=== PATIENT | male | born 1965 | race Caucasian/White ===

== ENCOUNTER 2020-09-07 17:42 | Outpatient (REF) | payer SELFPAY ==
[2020-09-07 18:01] LABS: COVID-19 Test Negative (Negative)
== END 2020-09-07 17:43 | disposition home or self-care (01) ==
LOC: HO.LAB 17:42
PROVIDERS: Visit Provider Internal Medicine
DX: Z20.828 Contact with and (suspected) exposure to other viral communicable diseases (principal)
CPT/HCPCS: 87635

== ENCOUNTER 2021-11-26 09:48 | Emergency (ER) | payer OTHER, SELFPAY ==
--- NOTE | ~2021-11-26 | CT_ITS ---
EXAMINATION: CT LUMBAR SPINE WITHOUT CONTRAST CLINICAL INFORMATION: Low back pain with numbness COMPARISON: None TECHNIQUE: 2 mm thin axial and reformatted 2 mm thin sagittal and coronal images of lumbar spine were obtained without contrast. This CT examination was performed using dose optimization techniques as appropriate, variously including the following: *Automated exposure control *Adjustment of mA and/or kV according to patient size (this includes techniques or standardized protocols for targeted exams where dose is matched to indication/reason for exam; i.e. extremities or head) *Use of iterative reconstruction technique DLP; 381 mGy-cm FINDINGS: On sagittal reconstructed images there is normal lumbar lordosis. The vertebral heights, alignment and disc heights are normal. There is no visible acute fracture, dislocation or subluxation. The L1-L2 and L2-L3 disc level appears unremarkable. At L3-L4 disc level there is mild diffuse bulge without disc herniation or spinal stenosis. The neural foramina are patent bilaterally. At L4-L5 disc level there is no significant disc bulge, herniation or spinal stenosis. There is mild flattening of the ventral thecal sac. The neural foramina are patent bilaterally. At L5-S1 disc level there is no significant disc bulge, herniation or spinal canal stenosis. The neural foramina are bilaterally patent. Bone windows reveal no lytic or sclerotic process seen. There is minimal ventral spondylosis L2-L3 and L3-L4 disc levels. There are several anechoic cysts in both kidneys. Largest cyst in upper/midpole left kidney measuring 4.1 x 4.4 cm and6 Hounsfield units. No radiopaque renal calculi seen. There is no hydronephrosis. The paravertebral soft tissues are normal. Visualized bilateral SI joints are symmetrical and normal. There is no lytic or sclerotic process seen. CT/CT lumbar spine wo con IMPRESSION: Minimal disc bulges L3-L4 and L4-L5 disc levels without spinal canal stenosis. The neural foramina are patent. There is minimal spondylosis L2-through L3-L4 disc levels..
[2021-11-26 10:30] VITALS: BP 102/68; PULSE 71; RESP 16; TEMP 36.1; O2SAT 98; BMI 23.7
== END 2021-11-26 19:09 | disposition left against medical advice (07) ==
PROVIDERS: Emergency Provider Emergency Medicine
DX: R20.0 Anesthesia of skin (principal); M54.50 Low back pain, unspecified
CPT/HCPCS: 72131; 99282; 99284

== ENCOUNTER 2025-05-20 03:31 | Emergency (ER) | payer OTHER, SELFPAY ==
--- NOTE | 2025-05-20 | ECG_ITS ---
Test Reason : SOB Blood Pressure : */* mmHG Vent. Rate : 73 BPM Atrial Rate : 73 BPM P-R Int : 326 ms QRS Dur : 88 ms QT Int : 386 ms P-R-T Axes : 77 61 44 degrees QTcB Int : 425 ms Sinus rhythm with 1st degree A-V block Otherwise normal ECG No previous ECGs available Referred By: Generic ED Physician Electronically Signed By: ELEN ORTIZ MD
--- NOTE | ~2025-05-20 | XR_ITS ---
CLINICAL HISTORY: sob Chest X-ray, 2 Views COMPARISON: None provided FINDINGS: No consolidation. No pleural effusion. No pneumothorax. No cardiomegaly. No acute fracture. IMPRESSION: No acute findings. This document has been electronically signed by: Shamar Lo MD on 05/20/2025 05:24:58
[2025-05-20 03:33] VITALS: BP 93/57; PULSE 67; RESP 20; TEMP 36.3; O2SAT 93; BMI 22.2
--- OUTSIDE RECORDS SUMMARY | 2025-05-20 03:53 | XMS_ITS | Clinical Summary ---
Author Organization [facility] Address [address] [place] [address] Care Team Providers Care Architecture Instructor Name Role Phone Unavailable Primary Care Provider Unavailabl e Source Comments PLEASE NOTE, if this patient is a minor, it may be UNLAWFUL to discuss sensitive information that is contained in these records (such as FAMILY PLANNING, MENTAL HEALTH or SUBSTANCE ABUSE) with the minor patient's parent or other person without the patient's specific authorization.[facility] Active Problems Problem Noted Date Diagnosed Date Groin pain, left 06/18/2021 Immunizations Immunization Administration Dates Next Due Flu, Preservative Free 08/15/2020,09/06/2019 HEP B, PED/ADOL 10/05/2018,09/29/2017,08/20/2017 MMR (MMR II/Priorix) 10/05/2018,08/20/2017 PFIZER COVID VACCINE, PURPLE CAP, 12+ 11/28/2020 ,11/05/2020 Social History Tobacco Use Types Packs/Day Years Used Date Smoking Tobacco: Every Day Cigarettes Smokeless Tobacco: Never Comments:always thinking abo ut Alcohol Use Standard Drinks/Week Comments Not Currently 0 (1 standard drink = 0.6 oz pur e alcohol) Social Connections Answer Date Recorded Connectedness 0 06/18/2021 Financial Resource Strain Answer Date R ecorded Financial Resource Strain 0 2020 Stress Answer Date Recorded Stress 0 06/18/2021 Physical Activity Answer Date Recorded Physical Activity 0 06/18/2021 Food Insecurity Answer Date Recorded Food 0 06/18/2021 Transportation Needs Answer Date Record ed Transportation 0 06/18/2021 Housing Stability Answer Date Recorded Housing 0 06/18/2021 Safety and Environment Answer Date Danilo rded Safety 0 06/18/2021 Utilities Answer Date Recorded Utilities 0 06/18/2021 Employment Answer Date Recorded Employment 0 06/18/2021 Sex and Gender Information Value Date Recorded Sex Assigned at Male 06/18/2021 7:58 AM PDT Legal Sex Male 5:47 AM PST Gender Identity Male 06/18/2021 7:58 AM PDT Sexual Orientation Straight 06/18/2021 7: 58 AM PDT Last Filed Vital Signs Vital Sign Reading Time Taken Comments Blood Pressure 110/76 06/18/2021 11:00 AM EDT Pulse 78 06/18/2021 11:00 AM EDT Temperature 36.7 C (98.1 F) 06/18/2021 11:00 AM EDT Respiratory Rate 16 06/18/2021 11:00 AM EDT Oxygen Saturation - - Inhaled Oxygen Concentration - - Weight 71.9 kg (158 lb 9.6 oz) 06/18/2021 11:00 AM EDT Height 183 cm (6' 0.05 ) 06/18/2021 11:00 AM EDT Body Mass Index 21.48 06/18/2021 11:00 AM EDT Plan of Treatment Health Maintenance Due Date Last Done Comments Anxiety Screening 1965 Diabetes Screening 1963 Hepatitis C Screening 1963 Lipid Screening 1963 Tobacco Cessation Counseling (#1) 1963 Tobacco Screening 1963 HIV Screening 1978 Imm-DTaP/Tdap/Td (1 - Tdap) 1982 CT Colonography 2008 Colonoscopy 2008 Colorectal Cancer Screening 2008 FIT/gFOBT 2008 Fecal DNA 2008 Flexible Sigmoidoscopy 2008 Imm-Zoster, Recombinant (1 of 2) 2013 Annual Wellness (Adult): Ind icated (All Coverage) 06/18/2022 06/18/2021 Hypertension Screening (#1) 06/18/2022 [id number]-[id number]-25 ( season) 2024 021, 11/05/2020 Imm-Influenza (#1) 2024 08/15/2020, 09/06/2019 Alcohol and Drug Screen 11/17/2024 06/18/2021 Depression Annual Screen 11/17/2024 Insurance [facility] SAFETY NET DENTAL HEALTH SAFETY NET DENTAL HEALTH INSURANCE [facility]
[2025-05-20 03:55] LABS: Hematocrit 47.4 % (42.0-52.0); Hemoglobin 16.5 g/dl (14.0-18.0); Imm Gran Abs Auto 0.05 X10*3/uL (0.00-0.03); Imm Gran Pct Auto 0.5 % (0.0-0.4); Lymphocytes Absolute Auto 2.3 X10*3/uL (1.2-4.9); MANUAL DIFF FLAG NO; Mean Corpuscular HGB Conc 34.8 g/dl (31.0-36.0); Mean Corpuscular Hemoglobin 31.1 pg (27.0-33.0); Mean Corpuscular Volume 89.4 fL (80.0-98.0); NRBC Abs Auto 0.000 X10*3/uL (0.0-0.012); NRBC Pct Auto 0.0 /100WBC (0.0-0.2); Platelet Count 255 X10*3/uL (160-400); Red Blood Count 5.30 X10*6/uL (4.60-5.80); White Blood Count 9.7 X10*3/uL (4.8-10.8)
[2025-05-20 04:14] LABS: Alanine Aminotransferase 25 U/L (0-40); Albumin Level 4.4 g/dL (3.5-5.0); Alkaline Phosphatase 56 U/L (39-117); Anion Gap 12 (12-20); Aspartate Amino Transferase 35 U/L (5-37); Blood Urea Nitrogen 18 mg/dL (9-16); Calcium 8.7 mg/dL (8.4-10.2); Carbon Dioxide 22 mmol/L (22-29); Chloride 110 mmol/L (96-108); Creatinine Clr Calc Pharmacy 100.7; Estimated Glomerular Filt Rate > 60; Potassium 3.9 mmol/L (3.3-5.1); Sodium 140 mmol/L (135-145); Total Protein 7.1 g/dL (6.5-8.0)
[2025-05-20 04:16] LABS: Troponin-I High Sensitivity < 2.7 ng/L (<3.5-35.0)
[2025-05-20 06:14] VITALS: PULSE 55; RESP 15
[2025-05-20 06:20] VITALS: BP 93/60; O2SAT 93
[2025-05-20 06:21] VITALS: BP 96/52
--- NOTE | 2025-05-20 07:24 | MHC.EDTECH ---
This pct attempted to obtain a sars swab on this patient but this patient refused. RN Aware
--- NOTE | 2025-05-20 08:07 | ED.SOB ---
HPI - SOB/Dyspnea General Chief Complaint: Dyspnea Stated Complaint: SOB Time Seen by Provider: 05/20/25 08:07 Source: patient Mode of arrival: ambulatory Limitations: no limitations History of Present Illness ED Provider: ALVARO CLOUD PA-C HPI Narrative: 59 year old male, current tobacco smoker 1 ppd, who presents to the ED today for concerns of feeling bloating. He reports waking up around 0100 to urinate. Upon ambulating to the bathroom, he noted a sensation of feeling bloated. States this feeling made him feel short of breath briefly. Denies any associated abdominal pain or chest pain. At present, he reports feeling gassy . No other concerns. Last BM yesterday, passing flatus. No urinary concerns. No LE swelling. Reports approximately 3 similar episodes in the past which resolved on their own. He did not seek medical attention at that time. He admits to taking 2 shots of ever clear last night and eating spaghetti with red sauce for dinner, prior to going to bed. He is concerned he may have gastritis. Denies any history of this or acid reflux. He admits to intermittent dry cough since COVID (x5 yrs). No change in cough. No sputum production. Denies hx of copd/asthma. No recent travel or long car rides. Admits to consuming etoh socially, approx 2x/year. Denies binge drinking. Smokes marijuana daily. Denies fever, chills, sore throat, chest pain, shortness of breath, palpitations, hemoptysis, nausea/vomiting, diarrhea, constipation, urinary symptoms. Related Data Previous Rx's ?Medication ?Instructions ?Recorded pantoprazole 20 mg tablet,delayed 20 mg PO DAILY #30 tabs 05/20/25 release Allergies Allergy/AdvReac Type Severity Reaction Status Date / Time No Known Allergies (No Known Allergy Unverified 05/20/25 03:38 Allergies*) Review of Systems Review of Systems: Yes all other systems are reviewed and are negative PMFSH Past Medical History Attestation statement: The following information was validated with the patient. Source: old records reviewed and nursing notes reviewed Physical Exam Vital Signs: Vital Signs: Last Vital Signs Temp 97.3 F 05/20/25 09:45 Pulse 58 05/20/25 09:45 Resp 19 05/20/25 09:45 BP 106/69 05/20/25 09:45 Pulse Ox 94 05/20/25 09:45 O2 Del Method Room Air 05/20/25 09:45 BMI result Body Mass Index 22.2 vital signs stable, afebrile General: Well appearing, in no acute distress. Skin: Warm, dry, intact. No rashes or lesions. Head: Normocephalic, atraumatic. EENT: Hearing is intact b/l. Conjunctiva clear. PERRLA. EOM intact. Moist mucous membranes.? Neck: Supple without LAD Cardiac: Chest wall symmetric. RRR Lungs: Normal respiratory effort without accessory muscle use. CTA bilaterally. No rales, rhonchi, or wheezes.? Abdomen: Soft, non-tender, non-distended. No rebound tenderness or guarding. Positive BS x4. Back: No midline spinous or paraspinal tenderness. No step off deformity. Ext: Upper and lower extremities atraumatic, without tenderness, deformity, swelling or erythema. Neuro: AOx3. Normal speech. Strength 5/5 intact throughout. No saddle anesthesia. Sensation intact to light touch. NV intact distally. Ambulating with steady gait Course Course Course Narrative: CBC without leukocytosis or left shift. No anemia. H&H stable. Chemistry without acute electrolyte abnormality requiring intervention. Renal function WNL. Liver function WNL. Troponin flat x2. BNP undetectable, unlikely CHF. Lipase WNL. Chest x-ray without infiltrate or consolidation. No pleural effusion. No cardiomegaly. EKG showing sinus rhythm, rate of 73 beats per minute, first-degree AV block, no acute ischemic changes or ST elevations. > patient treated with GI cocktail with improvement in symptoms. Likely GI in nature. GERD vs gastritis. Will start patient on Protonix. no indication for further imaging at this time. Patient has remained stable throughout ED visit today. Discussed worrisome signs and symptoms and when to return to the ED. All questions answered at this time. Patient is agreeable with disposition and stable for discharge. Medications Administered Discontinued Medications Generic Name Dose Route Start Last Admin Trade Name Freq PRN Reason Stop Dose Admin Al Hydroxide/Mg Hydroxide 30 ml 05/20/25 08:36 05/20/25 09:09 Magnesium Hydrox/Alum Hydrox 30 Ml Oral.Susp PO 05/20/25 08:37 30 ml ONCE ONE Administration Belladonna Alkaloids/Phenobarbital 10 ml 05/20/25 08:36 05/20/25 09:09 Phenobarb/Hyoscy/Atropine/Scop 10 Ml Elixir PO 05/20/25 08:37 10 ml ONCE ONE Administration Ondansetron HCl 4 mg 05/20/25 08:36 05/20/25 09:12 Ondansetron Odt 4 Mg Tab.Pauldis CIELOINGU 05/20/25 08:37 Not Given ONCE ONE Medical Decision Making Medical Decision Making [facility] Narrative: 59 year old male, current tobacco smoker 1 ppd, who presents to the ED today for concerns of feeling bloating. vitals show soft BP, similar to prior visits, vitals are otherwise wnl. he is well appearing, lying comfortably on the exam bed. No respiratory distress, no tripoding. No cough noted. Lungs are CTA throughout without adventitious breath sounds. RRR. abdomen is soft, ND/NT, no rebound or guarding, active bs x4. Differential diagnosis includes GERD, gastritis, PUD, pneumonia, viral syndrome, anemia, electrolyte abnormality, gastroenteritis. Lower suspicion for biliary colic, cholecystitis, cholelithiasis. Unlikely PE, ACS, arrhythmia, CHF, PE, pancreatitis, acute abdomen. Labs, EKG, viral swabs, chest x-ray obtained from triage. Will trial GI cocktail and review. Differential Diagnosis Differential Diagnoses: The differential diagnosis associated with the presentation includes as above. Admission/Observation not indicated Lab Data [facility] Lab Attestation statement: I reviewed the patient's lab results. as above. 05/20/25 03:51 05/20/25 03:51 Labs: Lab Results 05/20/25 05/20/25 Range/Units 03:51 08:49 WBC 9.7 (4.8-10.8) X10*3/uL RBC 5.30 (4.60-5.80) X10*6/uL Hgb 16.5 (14.0-18.0) g/dl Hct 47.4 (42.0-52.0) % MCV 89.4 (80.0-98.0) fL MCH 31.1 (27.0-33.0) pg MCHC 34.8 (31.0-36.0) g/dl RDW 12.9 (11.0-16.0) % Plt Count 255 (160-400) X10*3/uL MPV 9.0 L (9.4-12.4) fL Immature Gran % (Auto) 0.5 H (0.0-0.4) % Neut % (Auto) 63.2 (45-73) % Lymph % (Auto) 24.2 (20-40) % [place] % (Auto) 9.4 (2-11) % Eos % (Auto) 2.3 (0-4) % Baso % (Auto) 0.4 (0-2) % Lymph # (Auto) 2.3 (1.2-4.9) X10*3/uL [place] # (Auto) 0.9 (0.1-1.2) X10*3/uL Eos # (Auto) 0.2 (0.0-0.4) X10*3/uL Baso # (Auto) 0.0 (0.0-0.2) X10*3/uL Abs Immat Gran (auto) 0.05 H (0.00-0.03) X10*3/uL Absolute Neuts (auto) 6.1 (2.0-8.3) x10*3/uL Absolute Nucleated RBC 0.000 (0.0-0.012) X10*3/uL Nucleated RBC % (auto) 0.0 (0.0-0.2) /100WBC Sodium 140 (135-145) mmol/L Potassium 3.9 (3.3-5.1) mmol/L Chloride 110 H (96-108) mmol/L Carbon Dioxide 22 (22-29) mmol/L Anion Gap 12 (12-20) BUN 18 H (9-16) mg/dL Creatinine 0.81 (0.5-1.4) mg/dL Estim Creat Clear Calc 100.7 Estimated GFR > 60 Random Glucose 94 (60-115) mg/dL Calcium 8.7 (8.4-10.2) mg/dL Total Bilirubin 0.3 (0.0-1.0) mg/dL AST 35 (5-37) U/L ALT 25 (0-40) U/L Alkaline Phosphatase 56 (39-117) U/L Troponin I High Sens < 2.7 < 2.7 (<3.5-35.0) ng/L B-Natriuretic Peptide < 10 (<100) pg/mL Total Protein 7.1 (6.5-8.0) g/dL Albumin 4.4 (3.5-5.0) g/dL Lipase 22 (8-78) U/L Independent Interpretation I performed an independent interpretation of an: EKG and Plain X-Ray Interpretation: chest xray without infiltrate or consolidation EKG showing normal sinus rhythm, 73 beats per minute, first-degree AV block, no acute ischemic changes or ST elevations Radiology Impression Discussion of test interpretation with radiology: I have reviewed the radiologist's reading. Radiologist Impression: Date of Service: 05/20/25 Procedure(s): XR chest 2V Accession Number(s): [id number] cc: Generic ED Physician; Physician,Unknown ~ CLINICAL HISTORY: sob Chest X-ray, 2 Views COMPARISON: None provided FINDINGS: No consolidation. No pleural effusion. No pneumothorax. No cardiomegaly. No acute fracture. IMPRESSION: No acute findings. This document has been electronically signed by: Shamar Lo MD on 05/20/2025 05:24:58 Independent Historian Clinical information obtained from an independent historian. History obtained from or confirmed by: Spouse () Prescription Management I considered prescription management with: Other (Protonix) Social Determinants Patient?s care significantly limited by Social Determinants of Health including: Other Social Determinant of Health Critical Care Time Critical Care Time Critical Care Time: No Discharge Plan Discharge Clinical Impression: Gastritis Patient Disposition: Home, Self-Care Instructions: Gastritis (ED), Diet for Stomach Ulcers and Gastritis (ED), GERD (Gastroesophageal Reflux Disease) (DC) Additional Instructions: Your blood work is reassuring. Your chest xray does not demonstrate any pneumonia or fluid in your lungs. Your EKG is reassuring. You report improvement in symptoms with GI cocktail. I have suspicion for gastritis v acid reflux. see home care instructions. I am sending you home with pantoprazole to take daily over the next few weeks. Please avoid spicy foods. Avoid NSAIDS (motrin/ ibuprofen). Please follow up with your outpatient providers. I have provided you with a referral to a GI doctor. You may call them to establish care, they will not call you. Return with any new or worsening symptoms. In the case of an emergency all 911. Prescriptions: New pantoprazole 20 mg tablet,delayed release (DR/EC) 20 mg PO DAILY Qty: 30 0RF Referrals: [facility] [Provider Group, Gastroenterology] Physician,Unknown J [Primary Care Provider, Medical] Interventions: ED Discharge Assessment Last Done: 05/20/25 09:45 Discharge Date/Time: 05/20/25 09:45 Print Language: Polish
[2025-05-20 09:01] VITALS: BP 106/69; PULSE 58; RESP 19; TEMP 36.3; O2SAT 94
[2025-05-20 09:06] LABS: Lipase 22 U/L (8-78)
[2025-05-20] MEDS: PHENobarb/Hyoscy/Atropine/Scop 10 ML ELIXIR PO (09:09)
[2025-05-20] MEDS: Magnesium Hydrox/Alum Hydrox 30 ML ORAL.SUSP PO (09:09)
[2025-05-20 09:12] LABS: B Type Natriuretic Peptide < 10 pg/mL (<100)
[2025-05-20 09:19] LABS: Troponin-I High Sensitivity < 2.7 ng/L (<3.5-35.0)
--- NOTE | 2025-05-20 09:34 | PC.NURSE ---
Assumed care of pt this morning, allowed to sleep appearing in NAD. Now awake, denies any pain, nausea. States he suspects anxiety and etoh consumption last night contributed to gastritis symptoms. Given rxs as ordered. All questions answered, pending lab results and disposition.
[2025-05-20 09:45] VITALS: BP 106/69; PULSE 58; RESP 19; TEMP 36.3; O2SAT 94
== END 2025-05-20 09:45 | disposition home or self-care (01) ==
PROVIDERS: Physician Assistant Medical; Emergency Provider Emergency Medicine Emergency Medical Services
DX: K29.70 Gastritis, unspecified, without bleeding (principal); R06.02 Shortness of breath; I44.0 Atrioventricular block, first degree; R14.0 Abdominal distension (gaseous); R94.31 Abnormal electrocardiogram [ECG] [EKG]; Z79.899 Other long term (current) drug therapy
CPT/HCPCS: 36415; 71046; 80053; 83690; 83880; 84484; 85025; 93005; 99283; 99285

== ENCOUNTER → 2025-05-20 03:44 | Outpatient (BNV) | payer OTHER, SELFPAY | PROVIDERS: Emergency Provider Emergency Medicine Emergency Medical Services; Visit Provider Internal Medicine Cardiovascular Disease | DX: I44.0 Atrioventricular block, first degree (principal) | CPT/HCPCS: 93010 ==

== ENCOUNTER → 2025-05-20 03:50 | Outpatient (BNV) | payer OTHER, SELFPAY | PROVIDERS: Visit Provider Radiology Diagnostic Radiology | DX: R06.02 Shortness of breath (principal) | CPT/HCPCS: 71046 ==